=== PATIENT | male | born 1950 | race Caucasian/White ===

== ENCOUNTER 2019-04-14 19:01 | Inpatient (IN) | payer MEDICARE, OTHER ==
[2019-04-14] MEDS: PIPER-TAZO 3.375 GM IV (PMX) 100 ML IVPB (19:26)
[2019-04-14] MEDS: SODIUM CHLORIDE 0.9% 1L BAG IV* (19:26)
[2019-04-14 19:30] LABS: ADD MAN DIFF? NO
[2019-04-14 19:33] LABS: WHITE BLOOD COUNT 20.3 10^3/ul (4.8-10.8)
[2019-04-14 19:33] LABS: ABNORMAL IP MESSAGE 1; BASOPHIL # 0.2 10^3/ul (0.0-0.1); BASOPHILS % 0.7 % (0.0-2.0); EOSINOPHILS # 0.3 10^3/ul (0.0-0.5); EOSINOPHILS % 1.3 % (0.0-7.0); HEMATOCRIT 36.1 % (42.0-52.0); HEMOGLOBIN 11.7 g/dl (14.0-18.0); LYMPHOCYTES # 2.3 10^3/ul (0.8-2.9); LYMPHOCYTES % 11.3 % (15.0-51.0); MEAN CORPUSCULAR HEMOGLOBIN 29.1 pg (29.0-33.0); MEAN CORPUSCULAR HGB CONC 32.4 g/dl (32.0-37.0); MEAN CORPUSCULAR VOLUME 89.8 fl (82.0-101.0); MEAN PLATELET VOLUME 9.7 fl (7.4-10.4); MONOCYTE # 2.1 10^3/ul (0.3-0.9); MONOCYTES % 10.3 % (0.0-11.0); NEUTROPHIL # 15.3 10^3/ul (1.6-7.5); NEUTROPHILS % 75.7 % (39.0-77.0); PLATELET COUNT 462 10^3/UL (140-415); POSITIVE DIFF @See below; RED BLOOD COUNT 4.02 10^6/ul (4.70-6.10); RED CELL DISTRIBUTION WIDTH 15.2 % (11.5-14.5)
[2019-04-14 19:38] LABS: ADD UMIC YES; UR ASCORBIC ACID NEGATIVE (NEGATIVE); UR BILIRUBIN (Dip) NEGATIVE (NEGATIVE); UR BLOOD (Dip) NEGATIVE (NEGATIVE); UR CLARITY SLIGHTLY CLOUDY (CLEAR); UR COLOR YELLOW (YELLOW); UR GLUCOSE (Dip) NEGATIVE (NEGATIVE); UR KETONES (Dip) NEGATIVE (NEGATIVE); UR LEUKOCYTE ESTERASE (Dip) 2+ Leu/ul (NEGATIVE); UR MUCUS FEW /HPF (NONE SEEN); UR NITRITE (Dip) NEGATIVE (NEGATIVE); UR RBC 3 /HPF (0-5); UR SPECIFIC GRAVITY (Dip) 1.023 (1.003-1.030); UR TOTAL PROTEIN (Dip) 1+ mg/dl (NEGATIVE); UR UROBILINOGEN (Dip) NEGATIVE (NEGATIVE); UR WBC 84 /HPF (0-5)
[2019-04-14 19:50] LABS: ALANINE AMINOTRANSFERASE 36 IU/L (13-69); ALKALINE PHOSPHATASE 100 IU/L (42-121); ANION GAP 11 (5-13); ASPARTATE AMINO TRANSFERASE 29 IU/L (15-46); BILIRUBIN,INDIRECT 0.4 mg/dl (0-1.1); BILIRUBIN,TOTAL 0.4 mg/dl (0.2-1.3); BLOOD UREA NITROGEN 19 mg/dl (7-20); CALCIUM 9.7 mg/dl (8.4-10.2); CARBON DIOXIDE 26 mmol/L (21-31); CHLORIDE 104 mmol/L (97-110); CREATININE 0.99 mg/dl (0.61-1.24); Estimated GFR > 60 mL/min (>60); GLUCOSE 129 mg/dl (70-220); POTASSIUM 4.1 mmol/L (3.5-5.1); SODIUM 141 mmol/L (135-144)
[2019-04-14 19:53] LABS: INR 0.96; PARTIAL THROMBOPLASTIN TIME 32.3 Sec (23.0-35.0); PROTIME 12.9 Sec (11.9-14.9)
[2019-04-14 20:01] LABS: TROPONIN-I < 0.012 ng/ml (0.000-0.120)
[2019-04-14 22:15] LABS: LACTIC ACID 0.9 mmol/L (0.5-2.0)
[2019-04-14] MEDS ORDERED: ACETAMINOPHEN 325 MG TAB PO (23:00)
[2019-04-14] MEDS ORDERED: ONDANSETRON 4 MG INJ IV (23:00)
[2019-04-14 23:55] LABS: LACTIC ACID 0.9 mmol/L (0.5-2.0)
[2019-04-15] MEDS: SOD CHLORIDE 0.9% 100 ML (01:27)
[2019-04-15] MEDS: IOHEXOL 300MG/ML 150 ML BTL (01:28)
[2019-04-15] MEDS ORDERED: ALBUTEROL/IPRATROPIUM (NEB) 3 ML AMP HHN (01:30)
[2019-04-15] MEDS ORDERED: morphine 2 MG INJ IV (01:30)
[2019-04-15] MEDS ORDERED: ACETAMINOPHEN 325 MG TAB PO (01:30)
[2019-04-15] MEDS ORDERED: ONDANSETRON 4 MG INJ IV (01:30)
[2019-04-15] MEDS ORDERED: IBUPROFEN 400 MG TAB PO (01:30)
[2019-04-15] MEDS ORDERED: NACL 0.9% 3 ML SYG IV (01:30)
[2019-04-15] MEDS: HYDROCODONE/APAP (10/325) TAB PO ×4 (01:38→23:52)
[2019-04-15] MEDS: SOD CHLORIDE 0.9% 1,000 ML IV ×3 (01:38→16:00)
[2019-04-15] MEDS: PIPER-TAZO 3.375 GM IV (PMX) 100 ML IVPB ×4 (05:20→23:46)
[2019-04-15 07:14] LABS: ADD MAN DIFF? NO
[2019-04-15 07:20] LABS: ABNORMAL IP MESSAGE 1; BASOPHIL # 0.1 10^3/ul (0.0-0.1); BASOPHILS % 0.7 % (0.0-2.0); EOSINOPHILS # 0.3 10^3/ul (0.0-0.5); EOSINOPHILS % 1.6 % (0.0-7.0); HEMOGLOBIN 10.1 g/dl (14.0-18.0); LYMPHOCYTES # 2.1 10^3/ul (0.8-2.9); LYMPHOCYTES % 12.6 % (15.0-51.0); MEAN CORPUSCULAR HEMOGLOBIN 29.2 pg (29.0-33.0); MEAN CORPUSCULAR HGB CONC 32.6 g/dl (32.0-37.0); MEAN CORPUSCULAR VOLUME 89.6 fl (82.0-101.0); MEAN PLATELET VOLUME 9.8 fl (7.4-10.4); MONOCYTE # 1.5 10^3/ul (0.3-0.9); MONOCYTES % 9.1 % (0.0-11.0); NEUTROPHIL # 12.4 10^3/ul (1.6-7.5); NEUTROPHILS % 75.2 % (39.0-77.0); PLATELET COUNT 404 10^3/UL (140-415); POSITIVE DIFF @See below; RED BLOOD COUNT 3.46 10^6/ul (4.70-6.10); RED CELL DISTRIBUTION WIDTH 15.3 % (11.5-14.5)
[2019-04-15 07:20] LABS: WHITE BLOOD COUNT 16.5 10^3/ul (4.8-10.8)
[2019-04-15 07:40] LABS: ALANINE AMINOTRANSFERASE 32 IU/L (13-69); ALBUMIN 3.2 g/dl (3.3-4.9); ALBUMIN/GLOBULIN RATIO 0.91; ALKALINE PHOSPHATASE 82 IU/L (42-121); ANION GAP 9 (5-13); ASPARTATE AMINO TRANSFERASE 21 IU/L (15-46); BILIRUBIN,INDIRECT 0.5 mg/dl (0-1.1); BILIRUBIN,TOTAL 0.5 mg/dl (0.2-1.3); BLOOD UREA NITROGEN 11 mg/dl (7-20); CALCIUM 8.8 mg/dl (8.4-10.2); CARBON DIOXIDE 24 mmol/L (21-31); CHLORIDE 107 mmol/L (97-110); CREATININE 0.75 mg/dl (0.61-1.24); Estimated GFR > 60 mL/min (>60); GLUCOSE 106 mg/dl (70-220); MAGNESIUM 1.9 mg/dl (1.7-2.5); PHOSPHORUS 2.4 mg/dl (2.5-4.9); POTASSIUM 3.9 mmol/L (3.5-5.1); SODIUM 140 mmol/L (135-144); TOTAL PROTEIN 6.7 g/dl (6.1-8.1)
[2019-04-15] MEDS: COLCHICINE 0.6 MG CAP PO ×2 (08:31→20:29)
[2019-04-15] MEDS: HEPARIN 5,000 UNIT/1 ML VIAL SC (08:32)
[2019-04-15] MEDS ORDERED: NON-FORMULARY/PATIENT OWN MED (Colchicine 0.6 MG) PO (09:00)
[2019-04-15] MEDS ORDERED: VANCOMYCIN IV PER PHARMACY XX (10:00)
[2019-04-15] MEDS: VANCOMYCIN HCL 1.25 GM in SOD CHLORIDE 0.9% 250 ML IVPB (11:54)
[2019-04-15] MEDS ORDERED: ALBUTEROL HFA 8 GM INHALER INH (13:00)
[2019-04-15] MEDS: FAMOTIDINE 20 MG TAB PO (20:29)
[2019-04-15] MEDS: LACTOBACILLUS RHAMNOSUS CAP PO (20:29)
[2019-04-16] MEDS: VANCOMYCIN 500 MG (PMX) 100 ML IVPB ×2 (00:31→12:28)
[2019-04-16] MEDS: SOD CHLORIDE 0.9% 1,000 ML IV ×2 (05:21→20:52)
[2019-04-16] MEDS: PIPER-TAZO 3.375 GM IV (PMX) 100 ML IVPB ×4 (05:21→23:29)
[2019-04-16] MEDS: HYDROCODONE/APAP (10/325) TAB PO ×4 (05:23→23:27)
[2019-04-16 05:57] LABS: ADD MAN DIFF? NO
[2019-04-16 06:00] LABS: BASOPHIL # 0.1 10^3/ul (0.0-0.1); EOSINOPHILS # 0.3 10^3/ul (0.0-0.5); EOSINOPHILS % 2.6 % (0.0-7.0); HEMATOCRIT 30.9 % (42.0-52.0); HEMOGLOBIN 9.9 g/dl (14.0-18.0); LYMPHOCYTES # 2.1 10^3/ul (0.8-2.9); LYMPHOCYTES % 16.5 % (15.0-51.0); MEAN CORPUSCULAR HEMOGLOBIN 28.4 pg (29.0-33.0); MEAN CORPUSCULAR VOLUME 88.8 fl (82.0-101.0); MEAN PLATELET VOLUME 9.8 fl (7.4-10.4); MONOCYTE # 1.3 10^3/ul (0.3-0.9); MONOCYTES % 9.8 % (0.0-11.0); NEUTROPHILS % 69.4 % (39.0-77.0); PLATELET COUNT 411 10^3/UL (140-415); RED BLOOD COUNT 3.48 10^6/ul (4.70-6.10); RED CELL DISTRIBUTION WIDTH 15.5 % (11.5-14.5)
[2019-04-16 06:35] LABS: ALANINE AMINOTRANSFERASE 39 IU/L (13-69); ALBUMIN 3.1 g/dl (3.3-4.9); ALBUMIN/GLOBULIN RATIO 0.91; ALKALINE PHOSPHATASE 76 IU/L (42-121); ANION GAP 8 (5-13); ASPARTATE AMINO TRANSFERASE 29 IU/L (15-46); BILIRUBIN,INDIRECT 0.4 mg/dl (0-1.1); BILIRUBIN,TOTAL 0.4 mg/dl (0.2-1.3); BLOOD UREA NITROGEN 10 mg/dl (7-20); CALCIUM 8.7 mg/dl (8.4-10.2); CARBON DIOXIDE 24 mmol/L (21-31); CHLORIDE 109 mmol/L (97-110); CREATININE 0.76 mg/dl (0.61-1.24); Estimated GFR > 60 mL/min (>60); GLUCOSE 100 mg/dl (70-220); POTASSIUM 3.8 mmol/L (3.5-5.1); SODIUM 141 mmol/L (135-144); TOTAL PROTEIN 6.5 g/dl (6.1-8.1)
[2019-04-16 07:07] LABS: HEMOGLOBIN A1C 5.3 % (0-5.9)
[2019-04-16 07:56] LABS: MAGNESIUM 1.9 mg/dl (1.7-2.5)
[2019-04-16 07:56] LABS: PHOSPHORUS 2.8 mg/dl (2.5-4.9)
[2019-04-16] MEDS: LACTOBACILLUS RHAMNOSUS CAP PO ×2 (08:48→20:52)
[2019-04-16] MEDS: COLCHICINE 0.6 MG CAP PO ×2 (08:48→20:52)
[2019-04-16] MEDS: ENOXAPARIN 30 MG/0.3 ML SYG SC (08:49)
[2019-04-16] MEDS: FAMOTIDINE 20 MG TAB PO (20:52)
[2019-04-16 23:52] LABS: VANCOMYCIN,TROUGH 6.7 ug/ml (10.0-20.0)
[2019-04-17] MEDS: VANCOMYCIN 500 MG (PMX) 100 ML IVPB (00:11)
[2019-04-17] MEDS: ZOLPIDEM 5 MG TAB PO (03:09)
[2019-04-17] MEDS: PIPER-TAZO 3.375 GM IV (PMX) 100 ML IVPB ×4 (05:39→23:20)
[2019-04-17] MEDS: LACTOBACILLUS RHAMNOSUS CAP PO ×2 (09:04→20:41)
[2019-04-17] MEDS: COLCHICINE 0.6 MG CAP PO ×2 (09:05→20:41)
[2019-04-17] MEDS: ENOXAPARIN 30 MG/0.3 ML SYG SC (09:08)
[2019-04-17] MEDS: VANCOMYCIN 1 GM 250 ML IVPB (13:19)
[2019-04-17] MEDS: HYDROCODONE/APAP (10/325) TAB PO ×2 (17:03→23:20)
[2019-04-17] MEDS: SOD CHLORIDE 0.9% 1,000 ML IV (17:49)
[2019-04-17] MEDS: FAMOTIDINE 20 MG TAB PO (20:41)
[2019-04-18] MEDS: VANCOMYCIN 1 GM 250 ML IVPB (00:49)
[2019-04-18] MEDS: ZOLPIDEM 5 MG TAB PO (00:49)
[2019-04-18] MEDS: PIPER-TAZO 3.375 GM IV (PMX) 100 ML IVPB ×4 (05:41→23:45)
[2019-04-18 05:50] LABS: ADD MAN DIFF? NO
[2019-04-18 05:54] LABS: WHITE BLOOD COUNT 7.8 10^3/ul (4.8-10.8)
[2019-04-18 05:54] LABS: BASOPHIL # 0.1 10^3/ul (0.0-0.1); BASOPHILS % 1.2 % (0.0-2.0); EOSINOPHILS # 0.3 10^3/ul (0.0-0.5); EOSINOPHILS % 4.4 % (0.0-7.0); HEMATOCRIT 30.3 % (42.0-52.0); LYMPHOCYTES % 25.2 % (15.0-51.0); MEAN CORPUSCULAR HEMOGLOBIN 29.4 pg (29.0-33.0); MEAN CORPUSCULAR VOLUME 89.1 fl (82.0-101.0); MEAN PLATELET VOLUME 9.9 fl (7.4-10.4); MONOCYTE # 0.8 10^3/ul (0.3-0.9); MONOCYTES % 10.4 % (0.0-11.0); NEUTROPHIL # 4.5 10^3/ul (1.6-7.5); NEUTROPHILS % 58.3 % (39.0-77.0); PLATELET COUNT 426 10^3/UL (140-415); RED CELL DISTRIBUTION WIDTH 15.1 % (11.5-14.5)
[2019-04-18 06:37] LABS: CREATININE 0.81 mg/dl (0.61-1.24)
[2019-04-18 06:37] LABS: BLOOD UREA NITROGEN 9 mg/dl (7-20)
[2019-04-18 06:51] LABS: ANION GAP 7 (5-13); BLOOD UREA NITROGEN 9 mg/dl (7-20); CALCIUM 8.8 mg/dl (8.4-10.2); CARBON DIOXIDE 25 mmol/L (21-31); CHLORIDE 111 mmol/L (97-110); CREATININE 0.79 mg/dl (0.61-1.24); Estimated GFR > 60 mL/min (>60); GLUCOSE 99 mg/dl (70-220); POTASSIUM 3.6 mmol/L (3.5-5.1); SODIUM 143 mmol/L (135-144)
[2019-04-18] MEDS: LACTOBACILLUS RHAMNOSUS CAP PO ×2 (08:51→21:26)
[2019-04-18] MEDS: COLCHICINE 0.6 MG CAP PO ×2 (08:51→21:25)
[2019-04-18] MEDS: ENOXAPARIN 40 MG/0.4 ML SYG SC (08:53)
[2019-04-18] MEDS: HYDROCODONE/APAP (10/325) TAB PO ×3 (09:01→23:03)
[2019-04-18] MEDS: DIPHENHYDRAMINE 25 MG CAP PO ×2 (13:00→21:00)
[2019-04-18] MEDS: FAMOTIDINE 20 MG TAB PO ×2 (14:43→21:26)
[2019-04-18] MEDS: DIPHENHYDRAMINE 1%/ZINC 28.3 GM CR TOP ×2 (15:30→21:27)
[2019-04-19] MEDS: ZOLPIDEM 5 MG TAB PO (01:03)
[2019-04-19] MEDS ORDERED: ZOLPIDEM 5 MG TAB PO (01:30)
[2019-04-19] MEDS: PIPER-TAZO 3.375 GM IV (PMX) 100 ML IVPB (05:57)
[2019-04-19 07:31] LABS: ADD MAN DIFF? NO
[2019-04-19 07:36] LABS: BASOPHIL # 0.1 10^3/ul (0.0-0.1); BASOPHILS % 0.9 % (0.0-2.0); EOSINOPHILS # 0.3 10^3/ul (0.0-0.5); EOSINOPHILS % 3.3 % (0.0-7.0); HEMATOCRIT 31.4 % (42.0-52.0); HEMOGLOBIN 10.3 g/dl (14.0-18.0); LYMPHOCYTES # 1.9 10^3/ul (0.8-2.9); LYMPHOCYTES % 21.4 % (15.0-51.0); MEAN CORPUSCULAR HGB CONC 32.8 g/dl (32.0-37.0); MEAN CORPUSCULAR VOLUME 88.5 fl (82.0-101.0); MEAN PLATELET VOLUME 9.8 fl (7.4-10.4); MONOCYTE # 0.9 10^3/ul (0.3-0.9); NEUTROPHIL # 5.6 10^3/ul (1.6-7.5); NEUTROPHILS % 63.7 % (39.0-77.0); PLATELET COUNT 465 10^3/UL (140-415); RED BLOOD COUNT 3.55 10^6/ul (4.70-6.10); RED CELL DISTRIBUTION WIDTH 15.3 % (11.5-14.5)
[2019-04-19 07:36] LABS: WHITE BLOOD COUNT 8.7 10^3/ul (4.8-10.8)
[2019-04-19] MEDS: HYDROCODONE/APAP (10/325) TAB PO (07:51)
[2019-04-19 08:06] LABS: ALANINE AMINOTRANSFERASE 47 IU/L (13-69); ALBUMIN 3.3 g/dl (3.3-4.9); ALBUMIN/GLOBULIN RATIO 0.94; ALKALINE PHOSPHATASE 85 IU/L (42-121); ANION GAP 8 (5-13); ASPARTATE AMINO TRANSFERASE 42 IU/L (15-46); BILIRUBIN,INDIRECT 0.4 mg/dl (0-1.1); BILIRUBIN,TOTAL 0.4 mg/dl (0.2-1.3); BLOOD UREA NITROGEN 11 mg/dl (7-20); CALCIUM 8.9 mg/dl (8.4-10.2); CARBON DIOXIDE 24 mmol/L (21-31); CHLORIDE 109 mmol/L (97-110); CREATININE 0.79 mg/dl (0.61-1.24); Estimated GFR > 60 mL/min (>60); GLUCOSE 96 mg/dl (70-220); POTASSIUM 3.6 mmol/L (3.5-5.1); SODIUM 141 mmol/L (135-144); TOTAL PROTEIN 6.8 g/dl (6.1-8.1)
[2019-04-19] MEDS: FAMOTIDINE 20 MG TAB PO (08:43)
[2019-04-19] MEDS: COLCHICINE 0.6 MG CAP PO (08:43)
[2019-04-19] MEDS: DIPHENHYDRAMINE 25 MG CAP PO ×2 (08:45→12:11)
[2019-04-19] MEDS: LACTOBACILLUS RHAMNOSUS CAP PO (08:50)
[2019-04-19] MEDS: ENOXAPARIN 40 MG/0.4 ML SYG SC (08:51)
[2019-04-19] MEDS: DIPHENHYDRAMINE 1%/ZINC 28.3 GM CR TOP (08:57)
[2019-04-19] MEDS: CIPROFLOXACIN 500 MG TAB PO (12:10)
[2019-04-19] MEDS: TRIMETHOPRIM/SULFAMETHOX (DS) TAB PO (12:10)
== END 2019-04-19 16:22 | disposition home or self-care (01) | DRG 872 ==
LOC: PP2 23:55 → E/R 19:01
PROVIDERS: Internal Medicine
DX: A41.9 Sepsis, unspecified organism (principal); J43.9 Emphysema, unspecified; N45.1 Epididymitis; N40.0 Benign prostatic hyperplasia without lower urinary tract symptoms; F17.200 Nicotine dependence, unspecified, uncomplicated; R21 Rash and other nonspecific skin eruption; Z90.5 Acquired absence of kidney; Z85.528 Personal history of other malignant neoplasm of kidney; Z85.46 Personal history of malignant neoplasm of prostate
CPT/HCPCS: 36415; 71045; 71260; 74176; 80048; 80053; 80202; 81001; 82565; 83036; 83605; 83735; 84100; 84443; 84484; 84520; 85025; 85610; 85730; 87040-91; 87086; 93005; 96374; 99285-25